=== PATIENT | female | born 1985 | race American Indian/Alaskan Native ===

== ENCOUNTER 2016-12-29 10:07 | Emergency (ER) | payer OTHER ==
[2016-12-29 10:18] VITALS: BP 126/82
[2016-12-29] MEDS ORDERED: TORADOL IM ONE (10:38)
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
== END 2016-12-29 11:57 | disposition home or self-care (01) ==
LOC: ED 10:07
DX: S13.9XXA Sprain of joints and ligaments of unspecified parts of neck, initial encounter (principal); S46.912A Strain of unspecified muscle, fascia and tendon at shoulder and upper arm level, left arm, initial encounter; S76.912A Strain of unspecified muscles, fascia and tendons at thigh level, left thigh, initial encounter; V49.9XXA Car occupant (driver) (passenger) injured in unspecified traffic accident, initial encounter; Y93.89 Activity, other specified; Y99.9 Unspecified external cause status; Y92.410 Unspecified street and highway as the place of occurrence of the external cause
CPT/HCPCS: 72040; 73030; 96372; 99283; J1885